=== PATIENT | male | born 1975 | race Caucasian/White ===

== ENCOUNTER 2018-10-08 23:27 | Emergency (ER) | payer OTHER ==
[2018-10-08 23:50] VITALS: BP 129/80; PULSE 56; TEMP 97.7; BMI 32.8
--- NOTE | 2018-10-09 00:21 | PDOC ---
Documentation entered by Jose Alicia SCRIBE, acting as scribe for Ruma Chew MD. Ruma Chew MD: This documentation has been prepared by the Ravin marcus Xhesika, SCRIBE, under my direction and personally reviewed by me in its entirety. I confirm that the documentation accurately reflects all work, treatment, procedures, and medical decision making performed by me. History of Present Illness - General Chief Complaint: Chest Pain Stated Complaint: CHEST PAIN History Source: Patient Exam Limitations: No Limitations - History of Present Illness Initial Comments: 10/08/18 23:42 The patient is a 43 year old male, with a significant past medical history of oral lesions (on medication) who presents to the emergency department with chest pain. The patient states he has been endorsing constant chest pressure described as dull ache for a couple weeks. The patient states the pain is a 3 /10, however, when he takes deep breaths he feels slightly short of breath. The patient denies any family history of heart disease. The patient denies fever, chills, nausea, vomit, diarrhea or constipation. The patient denies dysuria, frequency, urgency or hematuria. Allergies:Penicillins Past surgical history:None reported Social history: None reported PCP: Gibson Menjivar Past History - Past Medical History Allergies/Adverse Reactions: Allergies Allergy/AdvReac Type Severity Reaction Status Date / Time Penicillins Allergy Verified 10/08/18 23:28 Home Medications: Ambulatory Orders Flonase - 10/08/18 Methotrexate 10/08/18 Review of Systems - Review of Systems Able to Perform ROS?: Yes Comments:: 10/08/18 23:42 GENERAL/CONSTITUTIONAL: No fever or chills. No weakness. HEAD, EYES, EARS, NOSE AND THROAT: No change in vision. No ear pain or discharge. No sore throat. CARDIOVASCULAR: (+) chest pain or shortness of breath. RESPIRATORY: No cough, wheezing, or hemoptysis. GASTROINTESTINAL: No nausea, vomiting, diarrhea or constipation. GENITOURINARY: No dysuria, frequency, or change in urination. MUSCULOSKELETAL: No joint or muscle swelling or pain. No neck or back pain. SKIN: No rash NEUROLOGIC: No headache, vertigo, loss of consciousness, or change in strength/ sensation. ENDOCRINE: No increased thirst. No abnormal weight change. HEMATOLOGIC/LYMPHATIC: No anemia, easy bleeding, or history of blood clots. ALLERGIC/IMMUNOLOGIC: No hives or skin allergy. *Physical Exam - Vital Signs Last Vital Signs Temp Pulse Resp BP Pulse Ox 97.7 F 56 L 16 129/80 96 10/08/18 23:28 10/08/18 23:28 10/08/18 23:28 10/08/18 23:28 10/08/18 23:28 - Physical Exam Comments: 10/08/18 23:43 GENERAL: Awake, alert, and fully oriented, in no acute distress HEAD: No signs of trauma EYES: PERRLA, EOMI, sclera anicteric, conjunctiva clear ENT: Auricles normal inspection, hearing grossly normal, nares patent, oropharynx clear without exudates. Moist mucosa NECK: Normal ROM, supple, no lymphadenopathy, JVD, or masses LUNGS: Breath sounds equal, clear to auscultation bilaterally. No wheezes, and no crackles HEART: Regular rate and rhythm, normal S1 and S2, no murmurs, rubs or gallops ABDOMEN: Soft, nontender, normoactive bowel sounds. No guarding, no rebound. No masses EXTREMITIES: Normal range of motion, no edema. No clubbing or cyanosis. No cords, erythema, or tenderness NEUROLOGICAL: Cranial nerves II through XII grossly intact. Normal speech, normal gait ED Treatment Course - LABORATORY CBC & Chemistry Diagram: 10/08/18 23:45 10/08/18 23:45 Medical Decision Making - Medical Decision Making 10/09/18 00:13 pt presents to the ED complaining of a three week history of atypical chest pain. Presented today because his was concerned about the persistence of his pain. Patient is extremely low risk for cardiovascular disease. HEART score is 0. Will discharge home with instructions to follow up with his PMD. *DC/Admit/Observation/Transfer Diagnosis at time of Disposition: Chest pain Qualifiers: Chest pain type: other chest pain Qualified Code(s): R07.89 - Other chest pain ; R07.8 - Other chest pain - Discharge Dispostion Disposition: HOME Condition at time of disposition: Good Decision to Admit order: No - Referrals Referrals: Gibson Huerta MD [Primary Care Provider] - - Patient Instructions Printed Discharge Instructions: DI for Chest Pain Additional Instructions: you came to the ED for chest pain. Your EKG and blood work were normal, so it is safe for you to go home. You should follow up with your primary care doctor for additional testing. Call your doctor for an appointment on Wednesday. Return immediately to the ED for severe chest pain, severe shortness of breath, passing out, other new or worsening symptoms. - Post Discharge Activity
[2018-10-09 00:27] LABS: BASO % 0.6 % (0-2.0); EOS % 1.3 % (0-4.5); HEMATOCRIT 43.6 % (35.4-49); HEMOGLOBIN 14.4 GM/dL (11.7-16.9); LYMPH % 19.7 % (8-40); MCH 25.7 pg (25.7-33.7); MEAN PLT VOLUME 9.3 fl (7.5-11.1); MONO % 7.4 % (3.8-10.2); PLATELET COUNT 169 K/MM3 (134-434); RBC 5.59 M/mm3 (4.00-5.60); RDW 14.9 % (11.9-15.9); WHITE BLOOD COUNT 8.2 K/mm3 (4.0-10.0)
[2018-10-09 00:57] LABS: ALBUMIN 3.9 g/dl (3.4-5.0); ALK PHOS 70 U/L (45-117); ANION GAP 6 MMOL/L (8-16); BILIRUBIN,TOTAL 0.5 mg/dL (0.2-1); BLOOD UREA NITROGEN 17 mg/dL (7-18); CALCIUM 8.4 mg/dL (8.5-10.1); CHLORIDE 103 mmol/L (98-107); CO2 28 mmol/L (21-32); GLUCOSE,RANDOM 78 mg/dL (74-106); POTASSIUM 3.9 mmol/L (3.5-5.1); SGOT/AST 32 U/L (15-37); SGPT/ALT 66 U/L (13-61); SODIUM 136 mmol/L (136-145); TOT PROT 6.9 g/dl (6.4-8.2)
--- NOTE | 2018-10-09 08:42 | EKG ---
Test Reason : Blood Pressure : / mmHG Vent. Rate : 054 BPM Atrial Rate : 054 BPM P-R Int : 180 ms QRS Dur : 104 ms QT Int : 432 ms P-R-T Axes : 048 000 004 degrees QTc Int : 409 ms SINUS BRADYCARDIA OTHERWISE NORMAL ECG NO PREVIOUS ECGS AVAILABLE Confirmed by OLIVIER DOS SANTOS, PATTI ([id number]) on 10/09/2018 8:42:13 AM Referred By: MD PINEDO Confirmed By:PATTI AGUAYO MD
== END 2018-10-09 01:11 | disposition home or self-care (01) ==
LOC: FER 23:27
DX: R07.9 Chest pain, unspecified (principal)
CPT/HCPCS: 36415; 80053; 82550; 82553; 84484; 85025; 93005; 99283-25